=== PATIENT | female | born 1945 | race Caucasian/White ===

== ENCOUNTER 2017-07-09 19:14 | Emergency (ER) | payer MEDICARE ==
[~2017-07-09] VITALS: Ht 165.1 cm; Wt 81.7 kg
[~2017-07-09 19:14] MED LIST: ALBU90OI6 INH; AZIT250 PO; CODGUAEL PO; Keflex500 MG PO; Levaquin750 MG PO; ONDA4 PO; PHENA100 PO; Pyridium100 MG PO; SULTRIDS PO
[2017-07-09 20:05] LABS: BASOPHILS ABSOLUTE AUTO 0.01 K/mm3 (0.00-0.23); BASOPHILS PERCENT AUTO 0 % (0-2); EOSINOPHILS ABSOLUTE AUTO 0.09 K/mm3 (0.00-0.68); EOSINOPHILS PERCENT AUTO 2 % (0-6); Hematocrit 46.1 % (33.0-51.0); Hemoglobin 14.7 g/dL (11.5-16.0); IMMATURE GRAN ABSOLUTE AUTO 0.01 K/mm3 (0.00-0.10); IMMATURE GRAN PERCENT AUTO 0 % (0-1); LYMPHOCYTES PERCENT AUTO 26 % (21-46); MONOCYTES ABSOLUTE AUTO 0.83 K/mm3 (0.16-1.47); MONOCYTES PERCENT AUTO 16 % (4-13); Mean Corpuscular HGB 28.8 pg (26.0-34.0); Mean Corpuscular HGB Conc 31.9 g/dL (31.5-36.5); Mean Corpuscular Volume 90 fL (80-100); Mean Platelet Volume 9.2 fL (9.1-12.4); NEUTROPHILS ABSOLUTE AUTO 3.02 K/mm3 (1.96-9.15); NEUTROPHILS PERCENT AUTO 56 % (41-73); Platelet Count 207 K/mm3 (150-400); RDW Standard Deviation 46.5 fL (35.1-46.3); Red Blood Cell Count 5.11 M/mm3 (3.80-5.20); White Blood Cell Count 5.36 K/mm3 (4.00-11.30)
[2017-07-09 20:22] LABS: Alanine Aminotransfer (ALT/SGP 29 U/L (12-78); Albumin, Blood 3.1 g/dL (3.4-5.0); Albumin/Globulin Ratio 0.8 (0.8-1.8); Alk Phos 116 U/L (50-136); Anion Gap 5 mmol/L (6-16); Aspartate Aminotrans (AST/SGOT 24 U/L (12-37); Bilirubin, Total 0.3 mg/dL (0.1-1.0); Blood Urea Nitrogen 12 mg/dL (8-24); Bun/Creatinine Ratio 16.9 (12.0-20.0); CO2, Blood 28 mmol/L (21-32); Calcium, Blood 8.4 mg/dL (8.5-10.1); Chloride, Blood 101 mmol/L (98-108); Creatinine, Blood 0.71 mg/dL (0.40-1.00); Globulin, Blood 3.7 g/dL (2.2-4.0); Glomerular Filtration Rate >60 (60-); Glucose, Blood 125 mg/dL (70-99); Potassium, Blood 4.5 mmol/L (3.5-5.5); Sodium, Blood 134 mmol/L (136-145); Total Protein, Blood 6.8 g/dL (6.4-8.2)
[2017-07-09] MEDS ORDERED: AZIT250 PO (22:32)
[2017-07-09] MEDS ORDERED: Augmentin 875-1 EACH PO (23:10)
== END 2017-07-09 23:55 | disposition home or self-care (01) ==
LOC: ER 19:14
PROVIDERS: Emergency Medicine
DX: J18.9 Pneumonia, unspecified organism (principal); Z87.891 Personal history of nicotine dependence
CPT/HCPCS: 36415; 71046; 80053; 83880; 85025; 96374; 99283; J2405

== ENCOUNTER → 2017-07-16 | Outpatient (CLI) | payer MEDICARE ==
[~2017-07-16] MED LIST changes: +Augmentin 875-1 EACH PO
[2017-07-16 12:06] LABS: BASOPHILS ABSOLUTE AUTO 0.03 K/mm3 (0.00-0.23); BASOPHILS PERCENT AUTO 0 % (0-2); EOSINOPHILS ABSOLUTE AUTO 0.27 K/mm3 (0.00-0.68); EOSINOPHILS PERCENT AUTO 3 % (0-6); Hematocrit 44.6 % (33.0-51.0); Hemoglobin 14.7 g/dL (11.5-16.0); IMMATURE GRAN ABSOLUTE AUTO 0.05 K/mm3 (0.00-0.10); IMMATURE GRAN PERCENT AUTO 1 % (0-1); LYMPHOCYTES ABSOLUTE AUTO 1.44 K/mm3 (0.84-5.20); LYMPHOCYTES PERCENT AUTO 15 % (21-46); MONOCYTES ABSOLUTE AUTO 0.92 K/mm3 (0.16-1.47); MONOCYTES PERCENT AUTO 10 % (4-13); Mean Corpuscular HGB 29.5 pg (26.0-34.0); Mean Corpuscular Volume 89 fL (80-100); Mean Platelet Volume 8.9 fL (9.1-12.4); NEUTROPHILS ABSOLUTE AUTO 6.82 K/mm3 (1.96-9.15); NEUTROPHILS PERCENT AUTO 72 % (41-73); Platelet Count 351 K/mm3 (150-400); RDW Coefficient Variation 13.7 % (11.7-14.2); RDW Standard Deviation 44.2 fL (35.1-46.3); Red Blood Cell Count 4.99 M/mm3 (3.80-5.20); White Blood Cell Count 9.53 K/mm3 (4.00-11.30)
[2017-07-16 12:18] LABS: Alanine Aminotransfer (ALT/SGP 23 U/L (12-78); Albumin, Blood 3.3 g/dL (3.4-5.0); Albumin/Globulin Ratio 0.8 (0.8-1.8); Alk Phos 128 U/L (40-126); Anion Gap 9 mmol/L (6-16); Aspartate Aminotrans (AST/SGOT 15 U/L (12-37); Bilirubin, Total 0.6 mg/dL (0.1-1.0); Blood Urea Nitrogen 16 mg/dL (8-24); Bun/Creatinine Ratio 17.8 (12.0-20.0); CO2, Blood 28 mmol/L (21-32); Chloride, Blood 102 mmol/L (98-108); Globulin, Blood 4.4 g/dL (2.2-4.0); Glomerular Filtration Rate >60 (60-); Glucose, Blood 176 mg/dL (70-99); Potassium, Blood 4.3 mmol/L (3.5-5.5); Sodium, Blood 139 mmol/L (136-145); Total Protein, Blood 7.7 g/dL (6.4-8.2)
== END | disposition home or self-care (01) ==
LOC: LAB EV 12:03 → LAB SHORT 12:03
PROVIDERS: Physician Assistant Medical
DX: R11.0 Nausea (principal)
CPT/HCPCS: 80053; 85025

== ENCOUNTER → 2018-06-16 | Outpatient (CLI) | payer MEDICARE | LOC: LAB SHORT 15:28 → LAB EV 15:28 | DX: N39.0 Urinary tract infection, site not specified (principal) | CPT/HCPCS: 87077; 87086; 87186 ==

== ENCOUNTER 2023-10-28 12:11 | Inpatient (IN) | payer MEDICARE, OTHER ==
[~2023-10-28] VITALS: Ht 165.1 cm; Wt 56.7 kg
[~2023-10-28 12:11] MED LIST changes: +Flonase 0.05% N16 GM; +Pseudoephedrine30 MG PO
[2023-10-28 12:45] LABS: BASOPHILS ABSOLUTE AUTO 0.08 K/mm3 (0.00-0.23); BASOPHILS PERCENT AUTO 1 % (0-2); EOSINOPHILS ABSOLUTE AUTO 0.14 K/mm3 (0.00-0.68); EOSINOPHILS PERCENT AUTO 1 % (0-6); Hematocrit 31.9 % (33.0-51.0); Hemoglobin 7.8 g/dL (11.5-16.0); IMMATURE GRAN ABSOLUTE AUTO 0.03 K/mm3 (0.00-0.10); IMMATURE GRAN PERCENT AUTO 0 % (0-1); LYMPHOCYTES ABSOLUTE AUTO 1.59 K/mm3 (0.84-5.20); LYMPHOCYTES PERCENT AUTO 15 % (21-46); MONOCYTES ABSOLUTE AUTO 1.02 K/mm3 (0.16-1.47); MONOCYTES PERCENT AUTO 10 % (4-13); Mean Corpuscular HGB 15.4 pg (26.0-34.0); Mean Corpuscular HGB Conc 24.5 g/dL (31.5-36.5); Mean Corpuscular Volume 63 fL (80-100); Mean Platelet Volume 8.4 fL (9.1-12.4); NEUTROPHILS ABSOLUTE AUTO 7.64 K/mm3 (1.96-9.15); NEUTROPHILS PERCENT AUTO 73 % (41-73); Platelet Count 559 K/mm3 (150-400); RDW Coefficient Variation 24.1 % (11.7-14.2); RDW Standard Deviation 50.5 fL (35.1-46.3); Red Blood Cell Count 5.08 M/mm3 (3.80-5.20)
[2023-10-28 13:30] LABS: Albumin, Blood 2.1 g/dL (3.4-5.0); Albumin/Globulin Ratio 0.4 (0.8-1.8); Bilirubin, Total 0.6 mg/dL (0.1-1.0); Bun/Creatinine Ratio 18.7 (12.0-20.0); Calcium, Blood 8.4 mg/dL (8.5-10.1); Creatinine, Blood 0.48 mg/dL (0.40-1.00); Globulin, Blood 4.9 g/dL (2.2-4.0)
[2023-10-28 16:09] LABS: International Normalized Ratio 1.1; Prothrombin Time Results 11.7 Sec (9.7-11.5)
[2023-10-28 16:12] LABS: Influenza A, PCR NEGATIVE (NEGATIVE); Influenza B, PCR NEGATIVE (NEGATIVE); Resp Syncytial Virus, PCR NEGATIVE (NEGATIVE); SARS-Cov-2 (COVID-19) PCR, MMC POSITIVE (NEGATIVE)
[2023-10-28 19:40] LABS: Hematocrit 28.8 % (33.0-51.0); Mean Corpuscular HGB 15.5 pg (26.0-34.0); Mean Corpuscular HGB Conc 24.3 g/dL (31.5-36.5); Mean Corpuscular Volume 64 fL (80-100); Mean Platelet Volume 8.4 fL (9.1-12.4); Platelet Count 478 K/mm3 (150-400); RDW Coefficient Variation 23.9 % (11.7-14.2); RDW Standard Deviation 51.4 fL (35.1-46.3); Red Blood Cell Count 4.53 M/mm3 (3.80-5.20); White Blood Cell Count 10.34 K/mm3 (4.00-11.30)
[2023-10-28] MEDS ORDERED: NS 1,000 ML IV SCH (20:15)
[2023-10-28 21:04] VITALS: BP 134/70
[2023-10-28] MEDS ORDERED: HYDROmorphone HCl/Pf 1MG SYR IV PRN (21:45)
[2023-10-28] MEDS ORDERED: NS 250 ML IV PRN (21:45)
[2023-10-28 22:33] VITALS: BP 132/62
[2023-10-28 22:59] VITALS: BP 139/59
[2023-10-28 23:18] VITALS: BP 132/62
[2023-10-29] VITALS (7 sets, daily range): BP systolic 133–140; BP diastolic 57–71
[2023-10-29 02:24] LABS: Hematocrit 31.4 % (33.0-51.0); Hemoglobin 8.1 g/dL (11.5-16.0); Mean Corpuscular HGB 17.3 pg (26.0-34.0); Mean Corpuscular HGB Conc 25.8 g/dL (31.5-36.5); Mean Corpuscular Volume 67 fL (80-100); Mean Platelet Volume 8.1 fL (9.1-12.4); Platelet Count 415 K/mm3 (150-400); RDW Coefficient Variation 26.1 % (11.7-14.2); RDW Standard Deviation 61.5 fL (35.1-46.3); Red Blood Cell Count 4.67 M/mm3 (3.80-5.20); White Blood Cell Count 9.48 K/mm3 (4.00-11.30)
--- NOTE | 2023-10-29 02:26 | NUR ---
NEW ADMIT PT ARRIVED TO ROOM AT 2044; PT IS A/OX4. PT IS APPEARS WEAK AND GENERALLY DECONDITIONED. PT ARRIVED IN WHEELCHAIR. 1 PERSON ASSIST PIVOT/XFER TO THE BED. PT IS ABLE TO ANSWER QUESTIONS AND MAKE NEEDS KNOWN. PT IS POSITVE FOR COVID. ADMIT WITH DX OF COLON CANCER W/METS TO LYMPH; SURGICAL CONSULT ORDERED. PT NPO. PT STATES SHE HAS LOST AT LEAST 15 POUNDS IN THE LAST MONTH DUE TO POOR APPETITE. PT LIVES WITH ROOMMATE/FRIEND BUT STATES HER AUNT IS PER PRIMARY CAREGIVER AND HER DAUGHTER JOLYNN GONSALVES IS NEXT OF KIN/PRIMARY CONTACT. PT VITALS ARE STABLE. LUNGS WITH FINE CRACKLES IN THE BASES; COUGH WITH DEEP INSPIRATION. PT STATES SHE HAS BEEN COUGHING UP WHITE COLOR PHLEM. 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 PT HAS HX OF ARTHRITIS AND STATES ONLY HOME MEDS SHE TAKES ARE TYLENOL FOR PAIN. PT STATES SHE HAS 7/10 ABD PAIN UPON ADMISSION. PT TAKES NO OTHER PRESCRIPTION MEDS. PT HGB AT 7.0 WITH 2 UNITS ORDERED FOR XFER. PT REQUESTING MEDICATION FOR ABD PAIN. CALL TO FOREST FIRE FIGHTERS DISPATCHER/DR LAYNE--CAME TO BEDSIDE TO COMPLETE BLOOD CONSENTS. NEW ORDER FOR .5-1MG DILAUDID Q4PRN.
--- NOTE | 2023-10-29 02:51 | NUR ---
BLOOD TRANSFUSION 2ND RN VERIFICATION OF BLOOD WITH MIMA SERRANO RN. INITIAL VITALS OBTAINED AT 2259; VITALS STABLE. SECOND VITALS IN 15 MINTUES AND THEN EVERY HOUR. STARTED INFUISION AT 100MLS HR; INCREASED TO 135MLS AND HTEN 150. PT TOLERATED WELL. PT STARTED W/DIMISHED AND FINE CRACKLES IN THE BASES OF LUNGS (PT IS COVID POSITIVE). PT DENIES SOB T/O THE INFUSION. TRANSFUSION OF FIRST UNIT COMPLETE AT 0120; HGB ORDERED AT 0200; CALL TO VICE PRESIDENT OF COMPLIANCE/DR CAIN TO ASK FOR DIRECTION OF 2ND UNIT BEFORE OR AFTER H&H. DR CAIN ADVISED TO DO H&H FIRST; IF HGB IS LESS THAN 7.0 TRANSFUSE UNIT, IF ABOVE DO NOT TRANSFUSE 2ND UNIT. 0200 HGB WAS 8.1; 2ND UNIT NOT TRANSFUSED PER DR CAIN'S ORDER.
[2023-10-29 08:03] LABS: Hematocrit 35.2 % (33.0-51.0); Mean Corpuscular HGB 17.3 pg (26.0-34.0); Mean Corpuscular HGB Conc 25.6 g/dL (31.5-36.5); Mean Corpuscular Volume 68 fL (80-100); Mean Platelet Volume 8.1 fL (9.1-12.4); Platelet Count 420 K/mm3 (150-400); RDW Coefficient Variation 25.5 % (11.7-14.2); RDW Standard Deviation 59.9 fL (35.1-46.3); Red Blood Cell Count 5.19 M/mm3 (3.80-5.20); White Blood Cell Count 13.48 K/mm3 (4.00-11.30)
[2023-10-29] MEDS ORDERED: Enoxaparin 30 MG/0.3 ML SYR SC SCH (09:00)
[2023-10-29] MEDS ORDERED: Ondansetron HCl 2 MG / ML 2ML Vial IV PRN (12:15)
[2023-10-29] MEDS ORDERED: Lactated Ringer's 1,000 ML IV SCH (12:15)
--- NOTE | 2023-10-29 16:59 | NUR ---
SHIFT SUMMARY PT MEDICATED FOR PAIN ONCE THIS SHIFT SO FAR. REPOSITIONING IN BED SEEMS TO HELP BACK PAIN. PT TOLERATING ICE CHIPS. CLEAR LIQUID DIET ORDERED. PT SLEEPING MOST THE DAY. DR. CINTRON IN TO SEE THE PATIENT. PLAN FOR KARLEY-COLECTOMY TOMORROW. NPO AT MIDNIGHT. IV FLUIDS CHANGED TO LR, PT VOIDING CONTINENTLY. JOLYNN COLORED URINE. NO OTHER ACUTE CHANGES IN ASSESSMENT AT THIS TIME. VS REVIEWED. CALL LIGHT IN REACH. PT CURRENTLY SLEEPING IN BED.
[2023-10-30] VITALS (19 sets, daily range): BP systolic 111–166; BP diastolic 50–82
[2023-10-30] MEDS ORDERED: Piperacillin/Tazobactam Sod 3.375 GM in NS 100 ML IV SCH ×2 (06:00→21:00)
[2023-10-30 08:49] LABS: BASOPHILS ABSOLUTE AUTO 0.06 K/mm3 (0.00-0.23); BASOPHILS PERCENT AUTO 1 % (0-2); EOSINOPHILS ABSOLUTE AUTO 0.04 K/mm3 (0.00-0.68); EOSINOPHILS PERCENT AUTO 0 % (0-6); Hematocrit 27.4 % (33.0-51.0); Hemoglobin 7.3 g/dL (11.5-16.0); IMMATURE GRAN ABSOLUTE AUTO 0.03 K/mm3 (0.00-0.10); IMMATURE GRAN PERCENT AUTO 0 % (0-1); LYMPHOCYTES ABSOLUTE AUTO 1.02 K/mm3 (0.84-5.20); LYMPHOCYTES PERCENT AUTO 11 % (21-46); MONOCYTES ABSOLUTE AUTO 1.32 K/mm3 (0.16-1.47); MONOCYTES PERCENT AUTO 14 % (4-13); Mean Corpuscular HGB 17.7 pg (26.0-34.0); Mean Corpuscular HGB Conc 26.6 g/dL (31.5-36.5); Mean Corpuscular Volume 66 fL (80-100); Mean Platelet Volume 8.5 fL (9.1-12.4); NEUTROPHILS PERCENT AUTO 74 % (41-73); Platelet Count 341 K/mm3 (150-400); RDW Coefficient Variation 25.5 % (11.7-14.2); RDW Standard Deviation 58.9 fL (35.1-46.3); Red Blood Cell Count 4.13 M/mm3 (3.80-5.20); White Blood Cell Count 9.27 K/mm3 (4.00-11.30)
[2023-10-30 09:10] LABS: Bun/Creatinine Ratio 16.4 (12.0-20.0); Calcium, Blood 7.9 mg/dL (8.5-10.1); Creatinine, Blood 0.43 mg/dL (0.40-1.00); Potassium, Blood 3.6 mmol/L (3.5-5.5)
--- NOTE | 2023-10-30 11:02 | NUR ---
CALLED DAY SURGERY TO VERIFY THAT PRBC IS NOT FOR TRANSFUSEION, TO HAVE READY FOR O.R.
--- NOTE | 2023-10-30 13:29 | NUR ---
RN NOTE MS KING IS SLEEPY, ORIENTATED TO SELF, PLACE AND SITUATION. SHE SAID SHE'D HAVE TO HAVE A THINK ABOUT WHAT DATE IT WAS AND DIDN'T TELL ME THE DATE. SHE IS SLEEPY, RESPONSIVE AND APPROPRIATE WHEN SPOKEN TO. SHE HAS BEEN UP TO THE BEDSIDE COMMODE WITH 1 PERSON ASSISTANCE AND GAIT BELT. SHE SAID SHE USES A WHEELCHCAIR AT BASELINE DUE TO ARTHRITIS. SHE HAS ONLY WANTED PAIN MEDICATION ONE TIME SO FAR THIS SHIFT. SHE SAID SHE HAS NOT HAD A BM FOR A WEEK AND IS NOT HAVING FLATUS. AWAITING O.R. APPOINTMENT THIS AFTERNOON. BATHED AND GOWNED READY FOR O.R. IN BED, LOW POSITION, CALL LIGHT IN REACH.
[2023-10-30] MEDS ORDERED: HYDROmorphone HCl/Pf 1MG SYR IV PRN (14:00)
[2023-10-30] MEDS ORDERED: Albuterol 2.5 MG/3 ML VIAL INH PRN (14:00)
[2023-10-30] MEDS ORDERED: FentaNYL Citrate 50 MCG/ML 2 ML Injection IV PRN (14:00)
[2023-10-30] MEDS ORDERED: Droperidol 5 mg/2 ml Vial IV PRN (14:05)
[2023-10-30] MEDS ORDERED: propofoL 20 ML IV ONE (14:16)
[2023-10-30] MEDS ORDERED: Ondansetron HCl 2 MG / ML 2ML Vial ONE (14:17)
[2023-10-30] MEDS ORDERED: FentaNYL Citrate 50 MCG/ML 2 ML Injection ONE ×2 (14:17→17:11)
[2023-10-30] MEDS ORDERED: Rocuronium Bromide 10 MG/ML 5ML Injection IV ONE ×2 (14:17→15:23)
--- NOTE | 2023-10-30 14:25 | NUR ---
TO O.R. AT 1405HRS ON BED.
--- NOTE | 2023-10-30 14:41 | NUR ---
REPORT TO ISIAH ON SURGICAL SHEPARD.
[2023-10-30] MEDS ORDERED: Bupivacaine 0.5% HCl 5 MG/ML 30MLVIAL ONE (14:57)
[2023-10-30] MEDS ORDERED: HYDROmorphone HCl/Pf 1MG SYR ONE ×2 (15:48→16:52)
[2023-10-30] MEDS ORDERED: Phenylephrine HCl 100 MCG/ML-NS 10MLSYR (1MG/10ML) ONE (16:03)
[2023-10-30] MEDS ORDERED: Sugammadex Sodium 200 MG/2ML SDV (100 MG/ML) ONE (16:13)
[2023-10-30] MEDS ORDERED: Ketorolac Tromethamine 15mg Vial IV PRN (16:55)
[2023-10-30] MEDS ORDERED: fentaNYL citrate 20 MCG/ML 30MLSYR IV PRN (17:00)
--- NOTE | 2023-10-30 18:20 | NUR ---
POST OP POD 0 HEMICOLECTOMY. MIDLINE ABD SULLY DRESSING CDI AND SUCTION INTACT. BUSCH PATENT TO GRAVITY. FENTANYL CAUSTIC ROOM ATTENDANT SET UP PER ORDERS AND PT VERB UNDERSTANDING OF CAUSTIC ROOM ATTENDANT BUTTON. POST OP VS IN PROGRESS AND STABLE. ON 2L O2 VIA NC SATTING 95%. ENCOURAING DEEP BREATHING AND PLANNING TO WEAN O2 KRISTIAN. PT TOLERATED SIP OF WATER. ORIENTED TO ROOM AND CALL LIGHT. CALL LIGHT WITHIN REACH.
[2023-10-31 04:17] VITALS: BP 130/66
--- NOTE | 2023-10-31 05:08 | NUR ---
SHIFT SUMMARY POD 1 R HEMICOLECTOMY PT RESTED FOR MOST OF SHIFT. PAIN MANAGED WITH FENT GUI DEVELOPER AND DOSE OF TORADOL. TOLERATING SMALL AMOUNTS OF CLEAR LIQUIDS. BUSCH CATH DRAINING YELLOW URINE. PT HAS NOT BEEN OOB YET. PT HAS SOME SLIGHT EDEMA IN R HAND. MIDLINE SULLY C/D/I AND COMPRESSED. MEPILEX ON COOCYX CHANGED THIS AM. VSS. NO OTHER CONCERNS AT THIS TIME, CALL LIGHT WIHTIN REACH
[2023-10-31 05:30] LABS: BASOPHILS ABSOLUTE AUTO 0.03 K/mm3 (0.00-0.23); BASOPHILS PERCENT AUTO 0 % (0-2); EOSINOPHILS ABSOLUTE AUTO 0.01 K/mm3 (0.00-0.68); EOSINOPHILS PERCENT AUTO 0 % (0-6); Hemoglobin 8.2 g/dL (11.5-16.0); IMMATURE GRAN ABSOLUTE AUTO 0.11 K/mm3 (0.00-0.10); IMMATURE GRAN PERCENT AUTO 1 % (0-1); LYMPHOCYTES ABSOLUTE AUTO 0.79 K/mm3 (0.84-5.20); LYMPHOCYTES PERCENT AUTO 5 % (21-46); MONOCYTES ABSOLUTE AUTO 1.34 K/mm3 (0.16-1.47); MONOCYTES PERCENT AUTO 8 % (4-13); Mean Corpuscular HGB 17.6 pg (26.0-34.0); Mean Corpuscular HGB Conc 25.6 g/dL (31.5-36.5); Mean Corpuscular Volume 69 fL (80-100); NEUTROPHILS ABSOLUTE AUTO 14.53 K/mm3 (1.96-9.15); NEUTROPHILS PERCENT AUTO 86 % (41-73); Platelet Count 398 K/mm3 (150-400); RDW Coefficient Variation 26.3 % (11.7-14.2); RDW Standard Deviation 63.6 fL (35.1-46.3); Red Blood Cell Count 4.67 M/mm3 (3.80-5.20); White Blood Cell Count 16.81 K/mm3 (4.00-11.30)
[2023-10-31 06:01] LABS: Bun/Creatinine Ratio 21.7 (12.0-20.0); Creatinine, Blood 0.55 mg/dL (0.40-1.00)
[2023-10-31 07:43] VITALS: BP 132/60
[2023-10-31] MEDS ORDERED: Enoxaparin 30 MG/0.3 ML SYR SC SCH (09:00)
[2023-10-31 14:33] VITALS: BP 131/53
[2023-10-31 19:03] VITALS: BP 136/57
--- NOTE | 2023-10-31 19:46 | NUR ---
SHIFT SUMMARY POD1 R KARLEY COLETOMY, A/OX4, VSS,TOLERATING SMALL AMT OF FLUIDS BUT DID NOT EAT MUCH OFF HER TRAYS, SLEPT T/O MOST OF THE SHIFT TODAY. UNDERWRITING INTERN IN PLACE, ETCO2 IN PLACE. NO ACUTE EVENTS THIS SHIFT, CALL LIGHT IN REACH.
[2023-11-01 03:45] VITALS: BP 133/58
--- NOTE | 2023-11-01 05:39 | NUR ---
SHIFT SUMMARY POD 2 R HEMICOLECTOMY PT SLEPT FOR MOST OF THE NIGHT. PAIN MANAGED WITH FOOD AND NUTRITION SUPERVISOR AND PRN TORADOL. PT TOLERATING SM AMOUNTS OF CLEARS, VOIDING. PT UP TO BSC WITH 2P ASST. MIDLINE SULLY COMPRESSED AND C/D/I. VSS. NO OTHER CONCERNS AT THIS TIME, CALL LIGHT WITHIN REACH
[2023-11-01 08:03] VITALS: BP 137/65
[2023-11-01] MEDS ORDERED: Lactated Ringer's 1,000 ML IV SCH (11:15)
[2023-11-01 14:41] VITALS: BP 141/67
--- NOTE | 2023-11-01 16:37 | NUR ---
Checked in with pt's daughter Tonya, she reports the patient is planning to come stay with her indefinitely after hospital discharge. She states the patient will be following up with [facility] after hospital discharge, as they are awaiting pathology of excised tumor. Pt is still recovering from hemicolectomy, no further Palliative Care concerns at this time.
[2023-11-01 19:05] VITALS: BP 142/62
--- NOTE | 2023-11-01 20:36 | NUR ---
SHIFT SUMMARY POD2 OPEN R KARLEY COLECTOMY, A/OX4, VSS, TOLERATING PO BUT INTAKE HAS BEEN POOR, DIET ADVANCED TO FULLS AND TOLERAATING IT BUT INTAKE HAS REMAINED LOW. FENT MOVIE THEATER MANAGER IN PLACE, THIS WAS PAUSED FOR AN HOUR WHILE SHE HAD NO IV ACCESS AND PAIN WAS TOLERABLE IN THAT TIME, UP TO CHAIR FOR AN HOUR THIS SHIFT, NO ACUTE EVENTS THIS SHIFT, CALL LIGHT IN REACH.
[2023-11-02 02:22] VITALS: BP 150/62
[2023-11-02 05:05] LABS: Hematocrit 28.2 % (33.0-51.0); Hemoglobin 7.4 g/dL (11.5-16.0); Mean Corpuscular HGB 17.9 pg (26.0-34.0); Mean Corpuscular HGB Conc 26.2 g/dL (31.5-36.5); Mean Corpuscular Volume 68 fL (80-100); Mean Platelet Volume 8.8 fL (9.1-12.4); Platelet Count 417 K/mm3 (150-400); RDW Coefficient Variation 26.8 % (11.7-14.2); RDW Standard Deviation 63.7 fL (35.1-46.3); Red Blood Cell Count 4.13 M/mm3 (3.80-5.20); White Blood Cell Count 6.41 K/mm3 (4.00-11.30)
[2023-11-02 05:39] LABS: Albumin, Blood 1.3 g/dL (3.4-5.0); Anion Gap 9 mmol/L (3-11); Blood Urea Nitrogen 7 mg/dL (8-24); Bun/Creatinine Ratio 20.6 (12.0-20.0); CO2, Blood 28 mmol/L (21-32); Chloride, Blood 105 mmol/L (98-108); Creatinine, Blood 0.34 mg/dL (0.40-1.00); Ferritin, Serum 19 ng/mL (8-252); Glomerular Filtration Rate 105 (60-); Glucose, Blood 90 mg/dL (70-99); Iron Serum 16 ug/dL (50-170); Magnesium, Blood 1.7 mg/dL (1.6-2.4); Percent Saturation 8.8 % (15.0-50.0); Phosphorus, Blood 1.9 mg/dL (2.5-4.9); Potassium, Blood 3.4 mmol/L (3.5-5.5); Sodium, Blood 139 mmol/L (136-145); Total Iron Binding Capacity 182 ug/dL (250-450)
--- NOTE | 2023-11-02 06:09 | NUR ---
SHIFT SUMMARY PT HAS RESTED IN BED T/O THE NIGHT, ASSESSMENT UNCHANGED. SURGICAL SITE WNL. FENTANYL TRACK BROOM OPERATOR IN PLACE. PT HAS HAD SOME URINARY INCONTINENCE, AND REQUIRED TWO BED CHANGES THIS SHIFT. VITALS ARE STABLE. IVF INFUSING. BED IN LOWEST POSITION, CALL LIGHT WITHIN REACH.
[2023-11-02 07:10] VITALS: BP 144/62
[2023-11-02] MEDS ORDERED: HYDROcodone 5-APAP 325 TAB PO PRN (12:55)
--- NOTE | 2023-11-02 18:33 | NUR ---
SHIFT SUMMARY POD2 R HEMII COLECTOMY, A/OX4, VSS, TOLERATING DIET BUT WITH POOR PO INTAKE QUANTITY. PT RESISTS GETTING UP AND ACTIVITY, UP TO CHAIR ONOCE AN WANTED TO GO BACK TO BED WITHIN 5 MINUTES. DISCUSSED IMPORTANCE OF ACTIVITY ANND POSIITIONING BUT SHE JUST WANTED TO GO BACCK TO BED SOON POSSIBLE. ENCOURAGED HER TO GET UP TO BSC FOR TOILETTING BUT SHE DIDN'T WANT TO GET UP SO SHE STOPPED CALLING AND JUST PEED II THE BED AND CALLED AFTER SHE HAD GONE. NO OTHER EVENTS THIS SHIFT, CALL LIGHT IN REACH.
[2023-11-02 19:33] VITALS: BP 121/58
[2023-11-02] MEDS ORDERED: Docusate Sodium 100 MG Cap PO SCH (21:00)
--- NOTE | 2023-11-03 05:19 | NUR ---
SHIFT SUMMARY NO ACUTE CHANGES TO REPORT OVENIGHT, PT MEDICATED FOR PAIN PRN THIS SHIFT. SURGICAL SITE WNL. VITALS ARE STABLE, RESP E/U ON RA. PT A/OX4, AND MAKES NEEDS KNOWN. PT HAS BEEN INCONTINENT, PUREWICK CATHETER IN PLACE OVERNIGHT. BED IN LOWEST POSITION, CALL LIGHT WITHIN REACH.
[2023-11-03 05:56] VITALS: BP 122/62
[2023-11-03 07:55] VITALS: BP 139/73
[2023-11-03] MEDS ORDERED: Sod Ferric Gluc Complx/Sucrose 125 MG in NS 100 ML IV SCH (11:32)
[2023-11-03 14:23] VITALS: BP 124/63
--- NOTE | 2023-11-03 18:38 | NUR ---
SHIFT SUMMARY POD4 OPEN R COLECTOMY, A/OX4, VSS, TOLERATING PO, CONTINUED TO EDUCATE AND ENCOURAGE HER TO GET UP AND BE ACTIVE SHE IS ABLE D/T HER BASELINE MOBILITY RESTRICTIONS, CALLS APPROPRIATELY BUT SOMETIMES [place] SO AFTER SHE VOIDS IN HER ATTENDS SO SHE DOESN'T HAVE TO GET OUT OF BED. UP TO CHAIR TWICE TODAY. NO ACUTE EVENTS THIS SHIFT, CALL LIGHT IN REACH.
[2023-11-03 20:15] VITALS: BP 128/68
[2023-11-04] VITALS (10 sets, daily range): BP systolic 113–144; BP diastolic 59–68
[2023-11-04 05:14] LABS: Hematocrit 21.2 % (33.0-51.0); Mean Corpuscular HGB 17.5 pg (26.0-34.0); Mean Corpuscular HGB Conc 25.9 g/dL (31.5-36.5); Mean Corpuscular Volume 68 fL (80-100); Mean Platelet Volume 8.7 fL (9.1-12.4); Platelet Count 392 K/mm3 (150-400); RDW Coefficient Variation 27.1 % (11.7-14.2); RDW Standard Deviation 63.6 fL (35.1-46.3); Red Blood Cell Count 3.14 M/mm3 (3.80-5.20); White Blood Cell Count 5.79 K/mm3 (4.00-11.30)
[2023-11-04 05:16] LABS: Hemoglobin 5.5 g/dL (11.5-16.0)
[2023-11-04 05:37] LABS: Albumin, Blood 1.2 g/dL (3.4-5.0); Anion Gap 8 mmol/L (3-11); Blood Urea Nitrogen 13 mg/dL (8-24); Bun/Creatinine Ratio 40.4 (12.0-20.0); CO2, Blood 28 mmol/L (21-32); Calcium, Blood 7.9 mg/dL (8.5-10.1); Chloride, Blood 107 mmol/L (98-108); Creatinine, Blood 0.32 mg/dL (0.40-1.00); Glomerular Filtration Rate 106 (60-); Glucose, Blood 93 mg/dL (70-99); Magnesium, Blood 1.7 mg/dL (1.6-2.4); Phosphorus, Blood 2.2 mg/dL (2.5-4.9); Potassium, Blood 3.4 mmol/L (3.5-5.5); Sodium, Blood 140 mmol/L (136-145)
--- NOTE | 2023-11-04 07:33 | NUR ---
SHIFT SUMMARY PT A&O X4, VSS; SBP 120'S, HR 90'S, SPO2 93% ON RA, AFEBRILE. PT C/O OF PAIN X1 DURING THE NIGHT, MEDICATED PER EMAR WITH ADEQUATE RELIEF. PT TOLERATING WATER INTAKE. PT WITH BM X1 THIS SHIFT THAT WAS MEDIUM, LOOSE, UNFORMED AND DARK IN COLOR; FOUL ODOR NOTED. PT UP TO BSC FOR BM, HOWEVER CONTINUES TO HAVE INCONTINENT VOIDS. PT ENCOURAGED TO PARTICIPATE IN CARE AND ACTIVITY, ENCOURAGED TO USE BSC WHEN SHE CAN. ATTENDS IN PLACE AND PT VOIDING WELL. MEPILEX IN PLACE TO COCCYX; C/D/I. OTHERWISE PT RESTED WELL. OF NOTE, PT WITH CRITICAL HGB THIS AM 5.5, BERRY GROWER NOTIFIED AND SHE NOTIFIED PROVIDER; NEW ORDERS FOR 1 UNIT PRBC'S. ORDERS PLACED. REPOSITIONED Q2 OR PRN PT ALLOWED. ABLE TO MAKE NEEDS KNOWN, CALL LIGHT IN REACH. WILL UPDATE ONCOMING RN.
[2023-11-04] MEDS ORDERED: Potassium Phosphate Dibasic 30 MM in Dextrose 5% 500 ML IV STA (13:23)
--- NOTE | 2023-11-04 18:08 | NUR ---
SHIFT SUMMARY RECIEVED REPORT FROM ANGELITA MCWILLIAMS AT 1700. PT IS POD5 FOR AN OPEN COLECTOMY. MIDLINE SULLY DRESSING IN PLACE W/ TWO DRIED SPOTS OF DRAINAGE THAT HAVE NOT INCREASED IN SIZE, MARKED W/ MARKER. PT IS COVID + BUT IS ASYMPTOMATIC. PT IS HAVING LIQUID DARK BM'S. PT DID NOT REQUIRE PAIN MEDS FOR THIS PART OF SHIFT. BLOOD TRANSFUSING CURRENTLY. PT IS ABLE TO STAND AND PIVOT W/ GB TO WC AND BSC, IS USING WC INDEPENDENTLY. HAVING INC/CONT VOIDS. PULL UPS IN PLACE. PT ENCOURAGED TO REPOSITION, MEPILEX IN PLACE. PT IS A/OX4, ABLE TO FOLLOW COMMANDS, TOLERATING REG DIET AND FLUIDS. USING CALL LIGHT APPROPRIATELY.
[2023-11-05 03:48] VITALS: BP 129/61
--- NOTE | 2023-11-05 04:59 | NUR ---
SHIFT SUMMARY GHULAM WAS DROWSY BUT FULLY ORIENTED ON ASSESMENT. PT MIDLINE SULLY CDI, AND FUNCTIONING INTENDED. PT WITH MIXED BLADDER CONTINENCE. SOLID BM TONIGHT. C/O PAIN TO ABD, MEDICATED PER EMAR. PT IV TO R AC WAS LEAKING, REPLACED IT W/ IV TO LFA. NO NOTED CHANGES TO PT CONDITION. PT RESTING W/ CALL LIGHT IN REACH.
[2023-11-05 05:26] LABS: Hematocrit 27.9 % (33.0-51.0); Hemoglobin 8.2 g/dL (11.5-16.0); Mean Corpuscular HGB Conc 29.4 g/dL (31.5-36.5); Mean Corpuscular Volume 71 fL (80-100); Mean Platelet Volume 8.5 fL (9.1-12.4); Platelet Count 365 K/mm3 (150-400); RDW Coefficient Variation 26.1 % (11.7-14.2); RDW Standard Deviation 65.2 fL (35.1-46.3); Red Blood Cell Count 3.91 M/mm3 (3.80-5.20); White Blood Cell Count 6.59 K/mm3 (4.00-11.30)
[2023-11-05 05:44] LABS: Albumin, Blood 1.4 g/dL (3.4-5.0); Anion Gap 11 mmol/L (3-11); Blood Urea Nitrogen 9 mg/dL (8-24); Bun/Creatinine Ratio 27.6 (12.0-20.0); CO2, Blood 25 mmol/L (21-32); Calcium, Blood 8.1 mg/dL (8.5-10.1); Chloride, Blood 107 mmol/L (98-108); Creatinine, Blood 0.33 mg/dL (0.40-1.00); Glomerular Filtration Rate 105 (60-); Glucose, Blood 81 mg/dL (70-99); Phosphorus, Blood 3.9 mg/dL (2.5-4.9); Potassium, Blood 3.9 mmol/L (3.5-5.5); Sodium, Blood 139 mmol/L (136-145)
[2023-11-05 07:19] VITALS: BP 123/60
[2023-11-05] MEDS ORDERED: CALCIUM GLUC IN NACL, ISO-OSM 100 ML IV ONE (11:10)
[2023-11-05 15:49] VITALS: BP 142/75
--- NOTE | 2023-11-05 19:00 | NUR ---
SHIFT SUMMARY S/P R KARLEY COLECTOMY, A/OX4, VSS, TOLERAATING PO BUT HAS CONTINUED POOR INTAKE, DISCUSSED INTAKE WITH DIETARY, PT REPORTS GAGGING WHEN EATING BUT THIS BEHAVIORO HAS NOT BEEN OBSERVED BY STAFF DURING HER STAY WITH MEDS/FLUIDS/MEALS. UPTO HER WHEELCHAIR TWICE THIS SHIFT, WHEELED HERSELF IN THE HALLS TWICE. NO ACUTE EVENTS THIS SHIFT, CALL LIGHT IN REACH.
[2023-11-05 20:15] VITALS: BP 130/62
--- NOTE | 2023-11-06 04:14 | NUR ---
SHIFT SUMMARY GHULAM WAS ROUSABLE AND FULLY ORIENTED ON ASSESSMENT. PT HAVING LESS PAIN TONIGHT COMPARED TO PREVIOUS NIGHT. PT HAS BEEN INCREASINGLY INCONTINENT OVER THE LAST WEEK PER REPORT. EDUCATION PROVIDED ON SKIN INTEGRITY, PT WAS ABLE TO CALL IN TIME TO USE BSC FOR MOST VOIDS TONIGHT. NO ACUTE EVENTS TONIGHT, REDNESS NOTED TO PT BOTTOM AND REINA AREA, MEPLEX TO COCCYX REPLACED.
[2023-11-06 05:18] VITALS: BP 136/63
[2023-11-06 07:21] VITALS: BP 100/71
[2023-11-06 08:22] VITALS: BP 142/66
--- NOTE | 2023-11-06 08:37 | NUR ---
NURSING SURG DAYSHIFT: Assumed care of pt at approx 0700. A/O, pleasant, cooperative w/care. General weakness noted, uses w/c at baseline, able to xfer w/one staff assist to BSC. Skin dry/fragile, coccyx red w/mepilex in place, midline incision w/scott dressing. Denies any pain/discomfort at rest or w/repositioning. HRR, murmur noted, no c/o CP/pressure, SBP 140's, trace-1+ BLE edema (L>R). L/S cta t/o, O2 sat 97% on RA, denies dyspnea, occ cough producing small amts of clear/stringy sputum. Abd soft, nontender w/palp per pt, BT+, voiding frequently and w/o difficulty. PIV x1, s/l. No s/s of acute distress. Pt expresses feeling much improved compared to previous days and is anticipating discharge home soon. Verbalized strong support system in home w/daughter and son in law. Remains in enhanced isolation d/t +covid results. Denies any current needs or questions regarding plan of care. Call light in reach, awaiting rounding from PMD, cont to monitor.
[2023-11-06 14:54] VITALS: BP 143/66
--- NOTE | 2023-11-06 16:29 | NUR ---
DISCUSSED CASE WITH MULTIDISIPLINARY TEAM. REVIEWED CHART. DISCUSSED CASE WITH ORAL AND MAXILLOFACIAL PATHOLOGIST WHO REPORTED THAT PATIENT WAS FEELING MUC BETTER AND WANTING TO GO HOME. PATIENT WAS ASLEEP DURING MY ROUNDS.
[2023-11-06] MEDS ORDERED: Dronabinol 2.5 MG Cap PO SCH (16:30)
--- NOTE | 2023-11-06 16:52 | NUR ---
NURSING SURG DAYSHIFT SUMMARY: Pt has continued to do well t/o the shift. Seen by PMD and surgeon, new d/o received. OOB in personal w/c for approx 30 min transporting self t/o halls, mask worn. Continues to ask about discharge plan and remains hopeful to discharge home by tomorrow. Daughter at bedside this afternoon, update provided. Pain continues to be well controlled w/PO pain med administered x1 this shift. Denies need for additional pain control measures. Abd remains nontender, BT increased, tolerating PO intake. No s/s of acute distress at this time. Denies any current questions/needs, cont to monitor until rpt is given to NOC RN.
[2023-11-06 19:36] VITALS: BP 138/63
[2023-11-07 03:40] VITALS: BP 151/70
--- NOTE | 2023-11-07 04:45 | NUR ---
SHIFT SUMMARY POD 8 HEMICOLECTOMY. NO ACUTE CHANGES OVERNIGHT. VSS. TOLERATING ORALS, ENC PO INTAKE - PT EXPERIENCING DECREASED APPETITE. FREQUENCY c VOIDING, ATTENDS IN USE R/T INCONT. MEPILEX TO COCCYX C/D/I. PT ABLE TO STAND/PIVOT FROM BED TO BSC c MIN ASSIST. PT REPORTS MIN PAIN TO ABDOMENT OVERNIGHT, MEDICATED PER EMAR. ANTICIPATED DISCHARGE HOME TODAY c DAUGHTER. CALL LIGHT IN REACH, BED IN LOWEST POSITION, WILL REPORT TO DAY RN.
[2023-11-07 05:24] LABS: Hematocrit 29.5 % (33.0-51.0); Hemoglobin 8.7 g/dL (11.5-16.0); Mean Corpuscular HGB 21.4 pg (26.0-34.0); Mean Corpuscular HGB Conc 29.5 g/dL (31.5-36.5); Mean Corpuscular Volume 73 fL (80-100); Mean Platelet Volume 8.2 fL (9.1-12.4); Platelet Count 414 K/mm3 (150-400); Red Blood Cell Count 4.07 M/mm3 (3.80-5.20); White Blood Cell Count 6.84 K/mm3 (4.00-11.30)
[2023-11-07 05:56] LABS: Bun/Creatinine Ratio 12.5 (12.0-20.0); Calcium, Blood 8.2 mg/dL (8.5-10.1); Creatinine, Blood 0.4 mg/dL (0.40-1.00); Potassium, Blood 3.6 mmol/L (3.5-5.5)
[2023-11-07 07:21] VITALS: BP 153/80
[2023-11-07] MEDS ORDERED: DRON2.5 PO (11:47)
[2023-11-07] MEDS ORDERED: Colace100 MG PO (11:47)
[2023-11-07] MEDS ORDERED: HYDR1TAB94 PO (11:49)
[2023-11-07] MEDS ORDERED: VITAMIN C125 MG PO (11:55)
[2023-11-07] MEDS ORDERED: FERSU300 PO (11:56)
--- NOTE | 2023-11-07 14:02 | NUR ---
DISCHARGE PT DISCHARGED HOME FROM UNIT AT APROX 1355. PT GIVEN WRITTEN AND VERBAL DC INSTRUCTIONS AND VERBALIZED UNDERSTANDING OF THESE INSTURCIONS AND VERBALIZED UNDERSTANDING. IV REMOVED. PRIVATE WC TO CAR. HARD SCRIPT FOR PAIN MEDICATION GIVEN TO PT, COPY IN CHART.
== END 2023-11-07 13:55 | disposition home health service (06) | DRG 329 ==
LOC: ER 12:11 → MEDS 19:29 → SURS 19:29 → MEDS 20:42 → SURS 10-30 16:00
PROVIDERS: Emergency Medicine; Internal Medicine; Surgery; ADMIT Family Medicine
PROC: 0DTF0ZZ Resection of Right Large Intestine, Open Approach (ICD-10-PCS; 2023-10-30)
PROC: 30233N1 Transfusion of Nonautologous Red Blood Cells into Peripheral Vein, Percutaneous Approach (ICD-10-PCS; principal; 2023-11-04)
DX: C18.2 Malignant neoplasm of ascending colon (principal); U07.1 COVID-19; E44.0 Moderate protein-calorie malnutrition; C18.0 Malignant neoplasm of cecum; C18.7 Malignant neoplasm of sigmoid colon; C77.2 Secondary and unspecified malignant neoplasm of intra-abdominal lymph nodes; Z66 Do not resuscitate; D50.9 Iron deficiency anemia, unspecified; R13.10 Dysphagia, unspecified; E87.6 Hypokalemia; E83.39 Other disorders of phosphorus metabolism; E83.51 Hypocalcemia; M19.90 Unspecified osteoarthritis, unspecified site; Z87.891 Personal history of nicotine dependence; Z68.20 Body mass index [BMI] 20.0-20.9, adult
CPT/HCPCS: 0241U; 36415; 36430; 71046; 71250; 74177; 80048; 80053; 80069; 82272; 82330; 82378; 82728; 82947; 83540; 83550; 83735; 84443; 84484; 85025; 85027; 85610; 86850; 86900; 86901; 86923; 88309; 93005; 93010; 94760; 97110; 97162; 97530; 99285-25; A9270; J0612; J1170; J1650; J1885; J2371; J2405; J2543; J2704; J2916; J3010; J7030; J7050; J7060; J7120; P9016; Q0167; Q9967